=== PATIENT | female | born 1970 | race Caucasian/White ===

== ENCOUNTER 2022-02-12 09:15 | Outpatient (CLI) | payer BC | END 2022-02-12 09:16 | disposition home or self-care (01) | LOC: BICRAD 09:15 | PROVIDERS: ATTEND Nurse Practitioner Family | DX: M54.42 Lumbago with sciatica, left side (principal); G89.29 Other chronic pain; M47.816 Spondylosis without myelopathy or radiculopathy, lumbar region | CPT/HCPCS: 72100; 72170 ==